=== PATIENT | male | born 1965 | race African-American/Black ===

== ENCOUNTER 2018-08-30 17:14 | Inpatient (IN) | payer OTHER ==
[2018-08-30 21:46] VITALS: BMI 17.4
--- NOTE | 2018-08-30 22:01 | HP ---
COWS - Scale Resting Pulse: 1= [place] 81-100 Sweatin=Flushed/Facial Moisture Restless Observation: 1= Difficult to Sit Still Pupil Size: 1= Pupils >than Normal Bone or Joint Aches: 2= Severe Diffuse Aches Runny Nose/ Eye Tearin= Runny Nose/Eyes GI Upset > 30mins: 2= Nausea/Diarrhea Tremor Observation: 1= Tremor [place], Not Seen Yawning Observation: 0= None Anxiety or Irritability: 2=Irritable/Anxious Goose Flesh Skin: 0=Smooth Skin COWS Score: 14 CIWA Score - Admission Criteria [facility] Guidelines: Admission for Medically Managed Detox: Requires at least one of the followin. CIWA greater than 12 2. Seizures within the past 24 hours 3. Delirium tremens within the past 24 hours 4. Hallucinations within the past 24 hours 5. Acute intervention needed for co occurring medical disorder 6. Acute intervention needed for co occurring psychiatric disorder 7. Severe withdrawal that cannot be handled at a lower level of care (continued vomiting, continued diarrhea, abnormal vital signs) requiring intravenous medication and/or fluids 8. Admission ROS [facility] - HPI Chief Complaint: DEPENDENT ON HEROIN ONLY Allergies/Adverse Reactions: Allergies Allergy/AdvReac Type Severity Reaction Status Date / Time Penicillins Allergy Severe Difficulty Verified 08/30/18 21:38 Breathing Sulfa (Sulfonamide Allergy Severe Difficulty Verified 08/30/18 21:38 Antibiotics) Breathing History of Present Illness: THE PT. IS REQUESTING ADMISSION TO THE DETOX UNIT AND CAME FOR MEDICAL CLEARANCE AND H AND PE Exam Limitations: Physical Impairment - Ebola screening Have you traveled outside of the country in the last 21 days: No (N) Have you had contact with anyone from an Ebola affected area: No Have you been sick,other than usual withdrawal symptoms: No Do you have a fever: No - Review of Systems Constitutional: See HPI, Loss of Appetite, Malaise, Weakness, Unexplained wgt Loss EENT: reports: See HPI Respiratory: reports: See HPI Cardiac: reports: See HPI, Syncope GI: reports: See HPI, Nausea, Vomiting, Abdominal cramping : reports: See HPI Musculoskeletal: reports: See HPI, Muscle Pain, Muscle Weakness, Joint Stiffness Integumentary: reports: See HPI, Sweating Neuro: reports: See HPI, Headache, Tremors, Weakness, Unsteady Gait Endocrine: reports: See HPI Hematology: reports: See HPI Psychiatric: reports: Judgement Intact, Orientated x3, Anxious, Depressed Patient History - Patient Medical History Hx Hypertension: Yes Hx Seizures: No Hx Human Immunodeficiency Virus (HIV): No Hx Hepatitis C: No Hx Depression: No - Patient Surgical History Past Surgical History: Yes Hx Orthopedic Surgery: Yes (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) - Smoking Cessation Smoking history: Current every day smoker Have you smoked in the past 12 months: Yes Aproximately how many cigarettes per day: 10 Hx Chewing Tobacco Use: No Initiated information on smoking cessation: Yes 'Breaking Loose' booklet given: 08/30/18 - Substances abused Heroin Substance route: Inhalation Frequency: Daily Amount used: 3-5 bags per day Age of first use: 48 Date of last use: 08/29/18 Family Disease History - Family Disease History Family Disease History: Diabetes: Father, Other: Grandparent (ETOH DEPENDENT) Admission Physical Exam [facility] - Vital Signs Vital Signs: Vital Signs - 24 hr 08/30/18 21:40 Temperature 98.5 F Pulse Rate 94 H Respiratory 19 Rate Blood Pressure 153/92 - Physical General Appearance: Yes: No Apparent Distress, Appropriately Dressed, Thin, Irritable, Sweating, Anxious HEENTM: Yes: Hearing grossly Normal, Normocephalic, Normal Voice, POLLO, Pharynx Normal Respiratory: Yes: Chest Non-Tender, Lungs Clear, Normal Breath Sounds, No Respiratory Distress, No Accessory Muscle Use Neck: Yes: No masses,lesions,Nodules, Supple, Trachea in good position Breast: Yes: Breast Exam Deferred, Axillae without masses Cardiology: Yes: Regular Rhythm, S1, S2, Tachycardia Abdominal: Yes: Normal Bowel Sounds, Non Tender, Flat Back: Yes: Normal Inspection Musculoskeletal: Yes: full range of Motion, Joint Stiffness, Muscle Pain, Muscle weakness Extremities: Yes: Normal Capillary Refill, Normal Range of Motion, Non-Tender, Tremors Neurological: Yes: sonoscope operator II-XII NML intact, Fully Oriented, Alert, Motor Strength 5/5, Normal Response, Depressed Affect Integumentary: Yes: Normal Color, Warm, Moist Lymphatic: Yes: Within Normal Limits - Diagnostic (1) Heroin dependence Current Visit: Yes Status: Chronic (2) HTN (hypertension) Current Visit: Yes Status: Chronic Qualifiers: Hypertension type: essential hypertension Qualified Code(s): I10 - Essential (primary) hypertension (3) S/P BKA (below knee amputation) Current Visit: Yes Status: Chronic (4) Nicotine dependence Current Visit: Yes Status: Chronic Qualifiers: Nicotine product type: cigarettes Cleared for Admission [facility] - Detox or Rehab [facility] Level of Care: Medically Supervised Detox Regimen/Protocol: Methadone Breathalyzer - Breathalyzer Breathalyzer: 0 Urine Drug Screen - Test Device Lot number: [id number] Expiration date: 05/20/18 - Control Is test valid?: Yes - Results Drug screen NEGATIVE: No Urine drug screen results: MOP-Opiates Inpatient Rehab Admission - Rehab Decision to Admit Inpatient rehab admission?: No
[2018-08-30] MEDS ORDERED: MAG HYDROX/AL HYDROX/SIMETH 30 ML UNIT-DOSE CUP PO PRN (22:11)
[2018-08-30] MEDS ORDERED: METHADONE HCL 10 MG TABLET (FOR DETOX USE ONLY) PO ONE ×2 (22:11→23:00)
[2018-08-30] MEDS ORDERED: MELATONIN 5 MG TABLETS PO PRN (22:11)
[2018-08-30] MEDS ORDERED: ACETAMINOPHEN 325 MG TABLET (FP) PO PRN ×2 (22:11)
[2018-08-30] MEDS ORDERED: cloNIDine HCL 0.1 MG TABLET PO PRN (22:11)
[2018-08-30] MEDS ORDERED: IBUPROFEN 400 MG TABLET (FP) PO PRN (22:11)
[2018-08-30] MEDS ORDERED: MAGNESIUM HYDROX 2400MG/30ML ORAL SUSPENSION 30 ML CUP PO PRN (22:11)
[2018-08-30] MEDS ORDERED: BISMUTH SUBSALICYLATE 524 MG/30 ML UD PO PRN (22:11)
[2018-08-30] MEDS ORDERED: METHOCARBAMOL 500 MG TABLET PO PRN (22:11)
[2018-08-30] MEDS ORDERED: NICOTINE POLACRILEX 2 MG GUM BUC PRN (22:11)
[2018-08-30] MEDS ORDERED: MAGNESIUM CITRATE 300 ML BOTTLE PO PRN (22:11)
[2018-08-30] MEDS ORDERED: MENTHOL/PHENOL 1 EACH UD MM PRN (22:11)
[2018-08-31] MEDS: hydrOXYzine PAMOATE 25 MG CAPSULE (FP) PO PRN ×3 (02:06→21:44)
[2018-08-31] MEDS ORDERED: METHADONE HCL 5 MG TABLET (FOR DETOX USE ONLY) PO ONE (10:00)
[2018-08-31 10:15] LABS: HEMATOCRIT 44.6 % (35.4-49); HEMOGLOBIN 14.9 GM/dL (11.7-16.9); MCHC 33.3 g/dl (32.0-35.9); PLATELET COUNT 193 K/MM3 (134-434); RBC 4.96 M/mm3 (4.00-5.60); RDW 15.2 % (11.9-15.9); WHITE BLOOD COUNT 5.6 K/mm3 (4.0-10.0)
[2018-08-31] MEDS: PRENATAL VITAMINS W/ FOLIC ACID TABLET (FP) PO SCH (10:23)
[2018-08-31] MEDS: HYDROCHLOROTHIAZIDE 25 MG TABLET (FP) PO SCH (10:23)
[2018-08-31] MEDS: NICOTINE 14 MG/24 HOURS TOPICAL PATCH TD SCH (10:24)
[2018-08-31] MEDS: amLODIPine BESYLATE 10 MG TABLET (FP) PO SCH (10:24)
[2018-08-31 10:38] LABS: ALBUMIN 3.4 g/dl (3.4-5.0); BILIRUBIN,TOTAL 0.6 mg/dL (0.2-1); BLOOD UREA NITROGEN 14.7 mg/dL (7-18); CALCIUM 9.6 mg/dL (8.5-10.1); CREATININE 0.8 mg/dL (0.55-1.3); POTASSIUM 3.6 mmol/L (3.5-5.1); TOT PROT 7.2 g/dl (6.4-8.2)
--- NOTE | 2018-08-31 10:41 | PN ---
[facility] COWS - Scale Resting Pulse: 0= [place] 80 or Below Sweatin=Flushed/Facial Moisture Restless Observation: 1= Difficult to Sit Still Pupil Size: 0= Normal to Room Light Bone or Joint Aches: 2= Severe Diffuse Aches Runny Nose/ Eye Tearin= Runny Nose/Eyes GI Upset > 30mins: 0= None Tremor Observation of Outstretched Hands: 1= Tremor [place], Not Seen Yawning Observation: 1= 1-2x During Session Anxiety or Irritability: 2=Irritable/Anxious Goose Flesh Skin: 0=Smooth Skin COWS Score: 11 S Progress Note (SOAP) Subjective: agitation sweats chills shakes body aches Objective: 08/31/18 10:38 Vital Signs Temperature 96.8 F L 08/31/18 10:04 Pulse Rate 70 08/31/18 10:04 Respiratory Rate 16 08/31/18 10:04 Blood Pressure 146/75 08/31/18 10:04 O2 Sat by Pulse Oximetry (%) Laboratory Tests 08/31/18 08/31/18 07:00 07:00 WBC 5.6 RBC 4.96 Hgb 14.9 Hct 44.6 MCV 90.0 MCH 30.0 MCHC 33.3 RDW 15.2 Plt Count 193 MPV 10.0 Sodium 140 Potassium 3.6 Chloride 101 Carbon Dioxide 32 Anion Gap 7 L BUN 14.7 Creatinine 0.8 Est GFR (CKD-EPI)AfAm 117.38 Est GFR (CKD-EPI)NonAf 101.27 Random Glucose 97 Calcium 9.6 Total Bilirubin 0.6 AST 15 ALT 27 Alkaline Phosphatase 115 Total Protein 7.2 Albumin 3.4 aaox3 ambulating no acute distress Assessment: 08/31/18 10:47 withdrawal sx Plan: continue detox increase fluids
[2018-08-31] MEDS ORDERED: THIAMINE HCL 100 MG TABLET (FP) PO SCH (22:00)
[2018-09-01] MEDS ORDERED: METHADONE HCL 10 MG TABLET (FOR DETOX USE ONLY) PO ONE (10:00)
[2018-09-01] MEDS: NICOTINE 14 MG/24 HOURS TOPICAL PATCH TD SCH (10:01)
[2018-09-01] MEDS: amLODIPine BESYLATE 10 MG TABLET (FP) PO SCH (10:01)
[2018-09-01] MEDS: PRENATAL VITAMINS W/ FOLIC ACID TABLET (FP) PO SCH (10:01)
[2018-09-01] MEDS: HYDROCHLOROTHIAZIDE 25 MG TABLET (FP) PO SCH (10:01)
--- NOTE | 2018-09-01 10:41 | PN ---
[facility] COWS - Scale Resting Pulse: 0= [place] 80 or Below Sweatin=Flushed/Facial Moisture Restless Observation: 1= Difficult to Sit Still Pupil Size: 0= Normal to Room Light Bone or Joint Aches: 2= Severe Diffuse Aches Runny Nose/ Eye Tearin= None GI Upset > 30mins: 0= None Tremor Observation of Outstretched Hands: 1= Tremor [place], Not Seen Yawning Observation: 1= 1-2x During Session Anxiety or Irritability: 2=Irritable/Anxious Goose Flesh Skin: 0=Smooth Skin COWS Score: 9 BHS Progress Note (SOAP) Subjective: sweats body aches interrupted sleep agitation Objective: 09/01/18 10:40 Vital Signs Temperature 97.9 F 09/01/18 09:57 Pulse Rate 66 09/01/18 09:57 Respiratory Rate 17 09/01/18 09:57 Blood Pressure 142/68 09/01/18 09:57 O2 Sat by Pulse Oximetry (%) Laboratory Tests 08/31/18 08/31/18 08/31/18 07:00 07:00 07:00 WBC 5.6 RBC 4.96 Hgb 14.9 Hct 44.6 MCV 90.0 MCH 30.0 MCHC 33.3 RDW 15.2 Plt Count 193 MPV 10.0 Sodium 140 Potassium 3.6 Chloride 101 Carbon Dioxide 32 Anion Gap 7 L BUN 14.7 Creatinine 0.8 Est GFR (CKD-EPI)AfAm 117.38 Est GFR (CKD-EPI)NonAf 101.27 Random Glucose 97 Calcium 9.6 Total Bilirubin 0.6 AST 15 ALT 27 Alkaline Phosphatase 115 Total Protein 7.2 Albumin 3.4 RPR Titer Nonreactive aaox3 ambulating no acute distress Assessment: 09/01/18 10:43 withdrawal sx Plan: continue detox increase fluids valium 5mg q4hr prn
[2018-09-01] MEDS: diazePAM 5 MG TABLET PO PRN ×2 (11:52→15:48)
[2018-09-01 17:29] VITALS: BP 113/77; PULSE 81; TEMP 98
--- NOTE | 2018-09-01 19:06 | DS ---
[facility] Detox Discharge Summary Admission Date: 08/30/18 Discharge Date: 09/01/18 - History Present History: Opioid Dependence Pertinent Past History: pt admitted for heroin dependence- pt walked off the unit- caught in the lobby- pt states he wants to sign out AMA- papers signed. - Physical Exam Results Vital Signs: Vital Signs Temperature 98 F 09/01/18 17:28 Pulse Rate 81 09/01/18 17:28 Respiratory Rate 18 09/01/18 17:28 Blood Pressure 113/77 09/01/18 17:28 O2 Sat by Pulse Oximetry (%) - Medication Discharge Medications: Ambulatory Orders Amlodipine Besylate [Norvasc -] 10 mg PO DAILY 08/30/18 Hydrochlorothiazide [Hctz -] 25 mg PO DAILY 08/30/18 - AMA Did Patient Leave Against Medical Advice: Yes
[2018-09-02] MEDS ORDERED: METHADONE HCL 5 MG TABLET (FOR DETOX USE ONLY) PO ONE (06:00)
== END 2018-09-01 18:36 | disposition left against medical advice (07) | DRG 894 ==
LOC: YASAS 17:14 → Y6N 23:36
PROVIDERS: ADMIT Surgery; ATTEND Surgery
PROC: HZ2ZZZZ Detoxification Services for Substance Abuse Treatment (ICD-10-PCS; principal; 2018-08-30)
DX: F11.23 Opioid dependence with withdrawal (principal); F17.210 Nicotine dependence, cigarettes, uncomplicated; I10 Essential (primary) hypertension; Z89.512 Acquired absence of left leg below knee; Z88.0 Allergy status to penicillin; Z88.2 Allergy status to sulfonamides
CPT/HCPCS: 36415; 80053; 85027; 86593